=== PATIENT | male | born 1940 | race Caucasian/White ===

== ENCOUNTER → 2016-10-10 | Outpatient (CLI) | payer MEDICARE | END | disposition home or self-care (01) | LOC: CFH 10:50 | PROVIDERS: ATTEND Internal Medicine Cardiovascular Disease | DX: I65.23 Occlusion and stenosis of bilateral carotid arteries (principal); I10 Essential (primary) hypertension; R06.02 Shortness of breath; F17.211 Nicotine dependence, cigarettes, in remission | CPT/HCPCS: 93880; 93978 ==

== ENCOUNTER → 2016-10-16 | Outpatient (CLI) | payer MEDICARE | END | disposition home or self-care (01) | LOC: CFH 10:57 | PROVIDERS: ATTEND Internal Medicine Cardiovascular Disease | DX: R06.02 Shortness of breath (principal); I10 Essential (primary) hypertension; F17.211 Nicotine dependence, cigarettes, in remission | CPT/HCPCS: 78452; 93017; 93306; A9502; J2785 ==